=== PATIENT | female | born 1985 | race African-American/Black ===

== ENCOUNTER → 2019-04-12 | Outpatient (CLI) | payer OTHER ==
[~2019-04-12] MED LIST: FLAGYL500 MG PO; FLEXERIL PO; IBUPROFEN 600600 M1 PO; IRON325 M1 PO
== END ==
LOC: ULTRA 15:12
DX: D25.9 Leiomyoma of uterus, unspecified (principal); N93.8 Other specified abnormal uterine and vaginal bleeding

== ENCOUNTER 2019-05-09 06:01 | Day surgery (SDC) | payer OTHER ==
--- NOTE | 2019-05-03 18:14 | H ---
[facility] [place] [address] HISTORY AND PHYSICAL Name: MINO MAN Room #: [facility] M.R.#: [id number] Admission: Attend Phys: Ubaldo Alonso, Discharge: Date of : 83 Report #: [id number] THIS REPORT FOR: //name// CC: [facility] physician/PCP Ubaldo Alonso DATE OF SCHEDULED OUTPATIENT SURGERY: 05/09/2019 REASON FOR SURGERY: Recurrent abnormal uterine bleeding. HISTORY OF PRESENT ILLNESS: This is a 34-year-old who presents with abnormal uterine bleeding. She was seen as a new patient for an annual exam on 04/10/2019. Her Pap smear was normal. She did have a pelvic ultrasound. Her uterus measured 7.7 cm in length. Endometrium measured 3 mm. She had an anterior fibroid measuring 1.7 cm. Right ovary was normal measuring 2.5 cm. Left ovary is normal measuring 3.9 cm. No free fluid was seen. On lab work, her hemoglobin was 13.7 with a TSH of 0.919. Because of her persistent abnormal uterine bleeding, we discussed treatment options. 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 We discussed nonhormonal options such as Lysteda or ibuprofen, talked about oral contraception both cyclic and on a continuous basis, all discussed NuvaRing and contraceptive patch as well as Depo-Provera. We further discussed all types of IUDs. We discussed the possibility of a hysterectomy. At this point, though the patient would like to proceed with possible endometrial ablation. The procedure, risks and recovery have been discussed with the patient. Her past history, she has had 2 vaginal deliveries and 1 for twins. She had 1 spontaneous miscarriage. She had a tubal ligation with her . She did have a previous hysteroscopy and MyoSure removal of 1.9 cm submucosal fibroid in 04/2018, the pathology was benign. She is again having prolonged and heavy menstrual cycles. She has previously tried oral contraception, NuvaRing, Depo-Provera and an IUD, but remains symptomatic. Otherwise, she has done well and is now in for further evaluation and treatment. PAST MEDICAL HISTORY: Again, she has had 2 vaginal deliveries, 1 for twins 1 miscarriage. She had a tubal ligation. She has had a previous hysteroscopy, D and C, and removal of the submucosal fibroid. SOCIAL HISTORY: She is employed, single. She is a former smoker. ALLERGIES: None. ACTIVE MEDICATIONS: Have been an iron supplement. REVIEW OF SYSTEMS: Positive for the abnormal bleeding, but she denies any fever or chills. No nausea, vomiting. No dysuria. No chest pain or shortness of breath. [address] [address] HISTORY AND PHYSICAL Name: MINO MAN Room #: [facility] M.R.#: [id number] Admission: Attend Phys: Ubaldo Alonso, Discharge: Date of : 83 Report #: [id number] PHYSICAL EXAMINATION: VITAL SIGNS: On exam, she is 5 feet 3-1/2 inches with weight of 128 and a BMI of 22, blood pressure 130/80. LUNGS: Clear. HEART: She had a regular rate and rhythm. NECK: Revealed no thyroid nodules, no supraclavicular adenopathy. ABDOMEN: Soft, nontender. No masses, rebound or guarding. PELVIS: On pelvic exam, there is no evidence of any vulvar or vaginal lesions. Bimanual is without masses or pain. IMPRESSION AND PLAN: Persistent abnormal uterine bleeding with previous nonresponse to alternative treatment options including hormonal treatment as well as an IUD. At this time, she is to undergo further evaluation with hysteroscopy, D and C and planned NovaSure endometrial ablation. Again, the procedure, risks, recovery and alternative options have been discussed with the patient. <ELECTRONICALLY SIGNED> By: Ubaldo Alonso MD 05/03/19 1814 1155 1240 Ubaldo Alonso MD /nt
[~2019-05-09] VITALS: Ht 160 cm; Wt 59.0 kg
[2019-05-09 06:48] LABS: HEMATOCRIT 41.6 % (37.0-47.0); HEMOGLOBIN 14.2 gm/dL (12.0-15.0)
[2019-05-09 07:00] VITALS: BP 120/78
--- NOTE | 2019-05-09 12:41 | O ---
[facility] [place] [address] OPERATIVE REPORT Name: MINO MAN [id number] Admission: 05/09/19 Attend Phys: Ubaldo Alonso, Discharge: 05/09/19 Date of : 83 Report #: [id number] THIS REPORT FOR: //name// CC: Ubaldo Alonso DATE OF SERVICE: 05/09/2019 PREOPERATIVE DIAGNOSES: Abnormal uterine bleeding, menorrhagia. POSTOPERATIVE DIAGNOSES: Abnormal uterine bleeding, menorrhagia with final pathology being deferred. PROCEDURES DONE: Hysteroscopy with D and C and endometrial ablation using NovaSure. SURGEON: Ubaldo Alonso M.D. ANESTHESIA: General. COMPLICATIONS: None. BLOOD LOSS: Approximately 5 mL. DESCRIPTION OF OPERATION: The patient was taken to the operating room and given adequate anesthesia. She was placed in the stirrups. She was prepped. Her bladder was drained and she was draped. A timeout procedure was performed. A weighted speculum was placed in the posterior vagina. The cervix was visualized and the anterior lip grasped with a tenaculum. Initially, endocervical curettage was performed. The uterus then sounded to 8 cm. Her cervical os was already well dilated and allowed an 8-mm dilator to be passed without difficulty. At this point, a hysteroscope was performed. The tubal ostia identified bilaterally. There was some endometrial thickening. She was actually currently on her menstrual cycle, but no other abnormalities identified. At this point, the hysteroscope was removed. Endometrial curettings were performed and all tissue sent to pathology. We then proceeded to perform the NovaSure. The NovaSure device was placed and the length of the uterine cavity was assessed at 5.5 cm with appropriate manipulation. The width was consistent at 4.1 cm. Those settings were placed on the machine. Cavity assessment was performed and passed without difficulty. The ablation procedure was then performed and carried out for a total of 50 seconds. At that time, the procedure complete light indicated the end of the procedure. The NovaSure was removed. There were no complications. She was having no bleeding. The tenaculum was removed from the cervix. It was hemostatic. The weighted speculum was removed. The sponge, needle and instrument count were correct x 3 according to the scrub nurse, circulating nurse. There were no complications. She was placed back into the supine position and taken to the recovery room in [address] [address] OPERATIVE REPORT Name: MINO MAN [facility] [id number] Admission: 05/09/19 Attend Phys: Ubaldo Alonso, Discharge: 05/09/19 Date of : 83 Report #: [id number] stable condition. It should be noted she did have in place compression devices throughout the operative procedure. <ELECTRONICALLY SIGNED> By: Ubaldo Alonso MD 05/09/19 1241 0859 2 Ubaldo Alonso MD /antionette
--- NOTE | 2019-05-10 18:06 | PATH ---
[facility] [place] [address] PATHOLOGY RPT PROCEDURE Name: MINO MAN Room #: [facility] M.R.#: [id number] Admission: 05/09/19 Date of : 83 Discharge: 05/09/19 Report #: [id number] Path Case #: [id number] [facility] Accession Number: [id number] . 01 Material submitted: . PART A: endocervix - ENDOCERVICAL CURETTINGS PART B: endometrium - ENDOMETRIAL CURETTINGS . 01 Clinical history: . Excessive and frequent menstruation with regular cycle. Abnormal uterine and vaginal bleeding, unspecified. Secondary dysmenorrhagia . 02 Diagnosis: A. Cervix, endocervical curettings: - Scant to rare strips of benign endocervical epithelium as well as ectocervical epithelium with no evidence of dysplasia. - Background showing endometrium with extensive glandular and stromal breakdown. . B. Uterus, endometrial curettings: - Extensive glandular and stromal breakdown. - Negative for hyperplasia, atypia or malignancy. - Strips of benign ectocervical and endocervical epithelium with no evidence of dysplasia. (IUV/db; 05/10/2019) LBQ 05/10/2019 1324 Local . 02 Electronically signed: . Opal Mora MD, Pathologist NPI- [id number] . 01 Gross description: . A. Received in formalin, labeled "Magda, Mino, endocervical curettings", is a 1.1 x 0.7 x 0.2 cm aggregate of sticky briggs-white mucoid material. Entirely submitted in A1. . B. Received in formalin, labeled "Magda, Mino, endometrial curettings", consists of friable, red-brown, hemorrhagic soft tissue admixed with mucus measuring 2.0 x 2.0 x 0.5 cm in aggregate. Entirely submitted in B1-B2. ([facility]; 05/09/2019) [facility] 05/09/2019 1640 [facility] . 02 Pathologist provided ICD-10: N85.9, N92.0, N93.9, N94.5 . [address] [address] PATHOLOGY RPT PROCEDURE Name: MAGDAMINO ALONSO Room #: [facility] M.R.#: [id number] Admission: 05/09/19 Date of : 83 Discharge: 05/09/19 Report #: [id number] Path Case #: [id number] CPT . 402710, [id number] Specimen Comment: A courtesy copy of this report has been sent to Specimen Comment: [phone]. Specimen Comment: Report sent to Performed at: [address] [facility], [place] [id number] MD Seun Lopez MD Phone: [phone] Performed at: [address] [id number] MD Opal Mora MD Phone: [phone]
== END 2019-05-09 10:05 | disposition home or self-care (01) ==
LOC: OR 06:01 → TBA 06:07 → OR 10:05
PROVIDERS: Obstetrics & Gynecology
DX: N93.9 Abnormal uterine and vaginal bleeding, unspecified (principal); N92.0 Excessive and frequent menstruation with regular cycle; N85.9 Noninflammatory disorder of uterus, unspecified; N94.5 Secondary dysmenorrhea; J45.909 Unspecified asthma, uncomplicated; D64.9 Anemia, unspecified; Z87.891 Personal history of nicotine dependence; Z98.890 Other specified postprocedural states; Z79.899 Other long term (current) drug therapy; Z98.51 Tubal ligation status
CPT/HCPCS: 50010; 50101; 54173; 57160; 62110; 62900; 70005

== ENCOUNTER → 2019-08-22 | Outpatient (CLI) | payer OTHER | LOC: RAD 09:17 | DX: R07.9 Chest pain, unspecified (principal) ==

== ENCOUNTER → 2019-09-05 | Outpatient (CLI) | payer OTHER | LOC: ULTRA 07:26 | DX: R22.2 Localized swelling, mass and lump, trunk (principal) ==